=== PATIENT | female | born 1960 | race Caucasian/White ===

== ENCOUNTER → 2016-09-27 | Outpatient (CLI) | payer BC ==
[~2016-09-27] MED LIST: GADAVIST IV PRN
--- NOTE | 2016-09-27 09:41 | DIAGNOSTIC IMAGING REPORT ---
MRI OF THE BRAIN WITHOUT AND WITH IV CONTRAST CLINICAL HISTORY: Disequilibrium. Vertigo. Follow-up of prior abnormal MRI the brain. COMPARISON STUDY: 05/19/2016 TECHNIQUE: MRI of the brain was performed from the vertex to the skull base utilizing various T1 and T2 weighted sequences. Following the IV administration of 8 mL of Gadavist contrast, additional enhanced images were obtained. FINDINGS: Sagittal T1, axial diffusion, proton density and T2 weighted axial, coronal FLAIR, and pre and post axial T1-weighted images were acquired. These were supplemented with post gadolinium coronal T1 weighted images. No intra or extra-axial mass lesions are visualized. Axial diffusion-weighted images reveal no evidence of acute or subacute infarction. There is no evidence of ventricular dilatation. Proton density T2-weighted and FLAIR images reveal foci of increased T2 signal within the frontal white matter, slightly less pronounced than on the preceding study. There are no abnormal flow voids. There is no evidence of pathologic enhancement. The previously questioned area of enhancement within the right temporal lobe is no longer visualized. No cerebellopontine angle masses are visualized. The 7th and 8th nerve complexes appear normal bilaterally. Inflammatory changes are present within the left maxillary sinus. IMPRESSION: 1. No evidence of intracranial mass 2. No evidence of acute or subacute infarction 3. Foci of increased T2 signal within the frontal white matter, slightly less pronounced than on the preceding study 4. The previously questioned area of enhancement within the right temporal lobe is no longer visualized. There is no pathologic enhancement on the current study 5. Inflammatory changes within the left maxillary sinus Electronically signed by: Nate Santana M.D. 09/27/2016 9:39 AM
== END | disposition home or self-care (01) ==
LOC: C.MRI 08:35
PROVIDERS: ATTEND Psychiatry & Neurology Neurology
DX: R42 Dizziness and giddiness (principal); R90.89 Other abnormal findings on diagnostic imaging of central nervous system

== ENCOUNTER 2018-12-30 22:27 | Inpatient (IN) ==
[2018-12-30] MEDS ORDERED: ONDANSETRON INJ 2 MG/ML 2 ML VIAL IV STA (23:03)
[2018-12-30] MEDS ORDERED: SODIUM CHLORIDE 0.9% 1000ML 1,000 ML IV SCH ×2 (23:15→23:45)
[2018-12-30 23:51] LABS: Albumin Globulin Ratio 0.9 (0.9-2); Albumin Level 4.4 gm/dl (3.4-5.0); BUN Creatinine Ratio 15.1 (10-20); Bilirubin,Total 0.8 mg/dl (0.2-1); Calcium 10.1 mg/dl (8.5-10.1); Creatinine Clr Calc Pharmacy 31.6 ml/min; Est GFR (African American) 31.5; Est GFR (Non-African American) 27.2; Potassium 3.6 mmol/L (3.5-5.1); Total Protein 9.4 gm/dl (6.4-8.2)
[2018-12-30 23:57] LABS: Hematocrit (blood only) 49.8 % (37-47); Hemoglobin 17.1 g/dL (12.0-16.0); Mean Corpuscular Hgb Conc 34.3 g/dL (32-36); Red Blood Count 5.66 M/uL (4.2-5.4); White Blood Count 11.57 K/uL (4.8-10.8)
[2018-12-31] MEDS ORDERED: POTASSIUM CHLORIDE / WTR 10 MEQ/100 ML PLCT IV ONE
[2018-12-31 00:40] LABS: Base Excess VBG -16.1 mEq/L; HCO3 VBG 8 mmol/L; Oxygen Saturation VBG 81.7 %; PCO2 VBG 19 mmHg (38-50); PO2 VBG 51 mmHg; pH VBG 7.26 (7.36-7.41)
[2018-12-31] MEDS ORDERED: INSULIN HUMAN REGULAR IV BOLUS 2 UNITS in SYRINGE 0 ML IV ONE (00:45)
[2018-12-31 01:09] LABS: Immature Granulocytes # (auto) 0.08 K/uL (0.00-0.02); Immature Granulocytes % (auto) 0.7 %; Lymphocytes # (auto) 0.78 K/uL (1.2-3.4); Lymphocytes % (auto) 6.7 %; Monocytes # (auto) 0.44 K/uL (0.11-0.59); Monocytes % (auto) 3.8 %; Neutrophils # (auto) 10.27 K/uL (1.4-6.5); Neutrophils % (auto) 88.8 %
[2018-12-31 01:21] LABS: Appearance Urine Clear (Clear); Bacteria Urine Automated Negative (Negative); Bilirubin Urine Negative (Negative); Blood Urine 1+ (Negative); Cast Urine Automated 0 /lpf (0-5); Color Urine Yellow; Epithelial Cell Urine Auto 20-30 /lpf (0-5); Glucose Urine UA 3+ (Negative); Leukocyte Esterase Urine Negative (Negative); Nitrite Urine Negative (Negative); Protein Urine Negative (Negative); RBC Urine Automated 0-4 /hpf (0-4); Specific Gravity Urine 1.033 (1.000-1.030); Urobilinogen Urine Negative (Negative)
[2018-12-31 01:23] LABS: Ketones Urine 4+ (Negative)
--- NOTE | 2018-12-31 01:27 | History & Physical Report ---
Date of Service December 31, 2018 Assessment & Plan (1) DKA (diabetic ketoacidoses): UT=467, AG=31, pH=7.26 on VBG, UA+ketones. No prior diagnosis of DM. Laboratory findings consistent with DKA. Patient clinically dry on physical exam. Has received 2L NSS and started on insulin gtt -Admit to PCU -Continue insulin gtt with q hourly finger sticks, goal 150-200 -NSS x 1 liter bolus then at 125mL/hr x 2 liters -Monitor BMP, Mg, PO4 and VBG q 4 hours to assess for gap closure -Check A1C with AM labs -Consult diabetes education (2) Hypertension: Blood pressure 141/97 at present -Will hold HCTZ and Lisinopril for now as patient appears to be clinically dry with some renal compromise -Continue to monitor -Serial labs as above (3) Hypothyroid: Chronic. -Check TSH with AM labs -Continue Synthroid at home dose F/E/N - NSS as above with K in bolus bag, will change to D5 when target blood sugar is met, monitor electrolytes and replete as needed, NPO for now Ppx - Lovenox Code - Full Dispo - PCU History of Present Illness Chief Complaint: New onset DM, DKA Primary Care Provider: Funmilayo Willams Patient is a 58yo C female with history of HTN, Hypothyroidism presenting in DKA. She reports diffuse weakness as well as nausea, non-bloody/non-bilious vomiting and PO intolerance over the last 3 days. Also with polydipsia and polyuria, dry mouth. She denies CP/palpitations/SOB/abdominal pain/diarrhea/dysuria. Patient says she "feels terrible". On arrival to the ER her blood sugar was found to be 880 with an anion gap of 31, pH of 7.26 on VBG. She was administered IVF and started on an insulin drip. She says she feels a little less nausea after receiving IVF. ER Course: NSS x 2 liters, Zofran x 4mg, KCL x 10mEq, Insulin gtt Allergies Allergy/AdvReac Type Severity Reaction Status Date / Time No Known Allergies Allergy Unverified 12/31/18 00:40 Home Medications Home Medications Medication Instructions Recorded Confirmed Type cyanocobalamin (vitamin B-12) 1,000 mcg IM MONTHLY 12/31/18 12/31/18 History cyanocobalamin (vitamin B-12) 1,000 mcg PO DAILY 12/31/18 12/31/18 History hydrochlorothiazide 25 mg PO DAILY 12/31/18 12/31/18 History levothyroxine 50 mcg PO DAILY 12/31/18 12/31/18 History lisinopril 10 mg PO DAILY 12/31/18 12/31/18 History multivitamin 1 tab PO DAILY 12/31/18 12/31/18 History Past Med/Surg History Medical History Hypertension Hypothyroid Surgical History History of ankle surgery Family History Other Diabetes Hypertension Social History Preferred Language: Pashto marital status: Current Living Situation: Spouse Feels Safe at Home: Yes Smoking Status: Never smoker Hx Alcohol Use: No Hx Substance Use: No Review of Systems All systems reviewed & are unremarkable except as noted in HPI & below Physical Exam Vital Signs (Past 24 Hours): Last Vital Signs Temp 36.8 C 12/30/18 22:32 Pulse 103 H 12/31/18 01:03 Resp 21 12/31/18 01:03 BP 141/97 H 12/31/18 01:03 Pulse Ox 99 12/31/18 01:03 Physical Exam: General: patient ill in appearance, NAD, AA&O x 4, +Kussmaul's respirations Skin: warm, dry, intact, no rashes or lesions HEENT: NC/AT, PERRL, EOMI, anicteric sclera, conjunctiva without injection, external ear normal to inspection and nontender, nares patent, dry mucus membranes, dentition intact, no oropharyngeal lesions, neck supple, trachea midline, no LAD, no thyromegaly, no JVD Heart: +S1/S2, regular, tachycardic, no m/r/g Lungs: equal air entry bilaterally, no rales/rhonchi/wheezes Abd: +BS, soft, NT/ND, no masses/organomegaly/ascites Ext: warm, 2+ pulses in UE/LE bilaterally, no clubbing/cyanosis or edema Neuro: nonfocal, patient AA&O x 4, speech intact, no facial droop, moving all extremities on command with equal strength 5/5 Results & Data Laboratory Results Lab Results 12/30/18 12/30/18 12/30/18 Range/Units 23:19 23:19 23:22 WBC 11.57 H (4.8-10.8) K/uL RBC 5.66 H (4.2-5.4) M/uL Hgb 17.1 H (12.0-16.0) g/dL Hct 49.8 H (37-47) % MCV 88.0 (80-100) fL MCH 30.2 (25-34) pg MCHC 34.3 (32-36) g/dL Plt Count (130-400) K/uL Immature Gran % (Auto) 0.7 % Neut % (Auto) 88.8 % Lymph % (Auto) 6.7 % Haskell % (Auto) 3.8 % Eos % (Auto) 0.0 % Baso % (Auto) 0.0 % Immature Gran # (Auto) 0.08 H (0.00-0.02) K/uL Neut # (Auto) 10.27 H (1.4-6.5) K/uL Lymph # (Auto) 0.78 L (1.2-3.4) K/uL Haskell # (Auto) 0.44 (0.11-0.59) K/uL Eos # (Auto) 0.00 (0-0.5) K/uL Baso # (Auto) 0.00 (0-0.2) K/uL VBG pH (7.36-7.41) VBG pCO2 (38-50) mmHg VBG pO2 mmHg VBG HCO3 mmol/L VBG O2 Saturation % VBG Base Excess mEq/L Sodium 129 L (136-145) mmol/L Potassium 3.6 (3.5-5.1) mmol/L Chloride 89 L (98-107) mmol/L Carbon Dioxide 9 L* (21-32) mmol/L Anion Gap 31.0 H (3-11) BUN 30 H (7-18) mg/dl Creatinine 1.99 H (0.6-1.2) mg/dl Est Cr Clr Drug Dosing 31.6 ml/min Est GFR ( Amer) 31.5 Est GFR (Non-Af Amer) 27.2 BUN/Creatinine Ratio 15.1 (10-20) Glucose 880 H* (70-99) mg/dl POC Glucose (70-99) Calcium 10.1 (8.5-10.1) mg/dl Total Bilirubin 0.8 (0.2-1) mg/dl AST 5 L (15-37) U/L ALT 20 (12-78) U/L Alkaline Phosphatase 120 H (45-117) U/L Total Protein 9.4 H (6.4-8.2) gm/dl Albumin 4.4 (3.4-5.0) gm/dl Globulin 5.0 H (2.5-4.0) gm/dl Albumin/Globulin Ratio 0.9 (0.9-2) Lipase 221 (73-393) U/L Urine Color Urine Appearance (Clear) Urine pH (4.5-7.5) Ur Specific Kenneth (1.000-1.030) Urine Protein (Negative) Urine Glucose (UA) (Negative) Urine Ketones (Negative) Urine Blood (Negative) Urine Nitrite (Negative) Urine Bilirubin (Negative) Urine Urobilinogen (Negative) Ur Leukocyte Esterase (Negative) Urine WBC (Auto) (0-5) /hpf Urine RBC (Auto) (0-4) /hpf U Hyaline Cast (Auto) (0-5) /lpf U Epithel Cells (Auto) (0-5) /lpf Urine Bacteria (Auto) (Negative) Influenza Type A Ag Neg for Influ A (Neg) Influenza Type B Ag Neg for Influ B (Neg) 12/31/18 12/31/18 12/31/18 Range/Units 00:23 00:27 00:28 WBC (4.8-10.8) K/uL RBC (4.2-5.4) M/uL Hgb (12.0-16.0) g/dL Hct (37-47) % MCV (80-100) fL MCH (25-34) pg MCHC (32-36) g/dL Plt Count (130-400) K/uL Immature Gran % (Auto) % Neut % (Auto) % Lymph % (Auto) % Haskell % (Auto) % Eos % (Auto) % Baso % (Auto) % Immature Gran # (Auto) (0.00-0.02) K/uL Neut # (Auto) (1.4-6.5) K/uL Lymph # (Auto) (1.2-3.4) K/uL Haskell # (Auto) (0.11-0.59) K/uL Eos # (Auto) (0-0.5) K/uL Baso # (Auto) (0-0.2) K/uL VBG pH 7.26 L (7.36-7.41) VBG pCO2 19 L (38-50) mmHg VBG pO2 51 mmHg VBG HCO3 8 mmol/L VBG O2 Saturation 81.7 % VBG Base Excess -16.1 mEq/L Sodium (136-145) mmol/L Potassium (3.5-5.1) mmol/L Chloride (98-107) mmol/L Carbon Dioxide (21-32) mmol/L Anion Gap (3-11) BUN (7-18) mg/dl Creatinine (0.6-1.2) mg/dl Est Cr Clr Drug Dosing ml/min Est GFR ( Amer) Est GFR (Non-Af Amer) BUN/Creatinine Ratio (10-20) Glucose (70-99) mg/dl POC Glucose > 600 H* > 600 H* (70-99) Calcium (8.5-10.1) mg/dl Total Bilirubin (0.2-1) mg/dl AST (15-37) U/L ALT (12-78) U/L Alkaline Phosphatase (45-117) U/L Total Protein (6.4-8.2) gm/dl Albumin (3.4-5.0) gm/dl Globulin (2.5-4.0) gm/dl Albumin/Globulin Ratio (0.9-2) Lipase (73-393) U/L Urine Color Urine Appearance (Clear) Urine pH (4.5-7.5) Ur Specific Kenneth (1.000-1.030) Urine Protein (Negative) Urine Glucose (UA) (Negative) Urine Ketones (Negative) Urine Blood (Negative) Urine Nitrite (Negative) Urine Bilirubin (Negative) Urine Urobilinogen (Negative) Ur Leukocyte Esterase (Negative) Urine WBC (Auto) (0-5) /hpf Urine RBC (Auto) (0-4) /hpf U Hyaline Cast (Auto) (0-5) /lpf U Epithel Cells (Auto) (0-5) /lpf Urine Bacteria (Auto) (Negative) Influenza Type A Ag (Neg) Influenza Type B Ag (Neg) 12/31/18 Range/Units 01:04 WBC (4.8-10.8) K/uL RBC (4.2-5.4) M/uL Hgb (12.0-16.0) g/dL Hct (37-47) % MCV (80-100) fL MCH (25-34) pg MCHC (32-36) g/dL Plt Count (130-400) K/uL Immature Gran % (Auto) % Neut % (Auto) % Lymph % (Auto) % Haskell % (Auto) % Eos % (Auto) % Baso % (Auto) % Immature Gran # (Auto) (0.00-0.02) K/uL Neut # (Auto) (1.4-6.5) K/uL Lymph # (Auto) (1.2-3.4) K/uL Haskell # (Auto) (0.11-0.59) K/uL Eos # (Auto) (0-0.5) K/uL Baso # (Auto) (0-0.2) K/uL VBG pH (7.36-7.41) VBG pCO2 (38-50) mmHg VBG pO2 mmHg VBG HCO3 mmol/L VBG O2 Saturation % VBG Base Excess mEq/L Sodium (136-145) mmol/L Potassium (3.5-5.1) mmol/L Chloride (98-107) mmol/L Carbon Dioxide (21-32) mmol/L Anion Gap (3-11) BUN (7-18) mg/dl Creatinine (0.6-1.2) mg/dl Est Cr Clr Drug Dosing ml/min Est GFR ( Amer) Est GFR (Non-Af Amer) BUN/Creatinine Ratio (10-20) Glucose (70-99) mg/dl POC Glucose (70-99) Calcium (8.5-10.1) mg/dl Total Bilirubin (0.2-1) mg/dl AST (15-37) U/L ALT (12-78) U/L Alkaline Phosphatase (45-117) U/L Total Protein (6.4-8.2) gm/dl Albumin (3.4-5.0) gm/dl Globulin (2.5-4.0) gm/dl Albumin/Globulin Ratio (0.9-2) Lipase (73-393) U/L Urine Color Yellow Urine Appearance Clear (Clear) Urine pH 5.0 (4.5-7.5) Ur Specific Kenneth 1.033 H (1.000-1.030) Urine Protein Negative (Negative) Urine Glucose (UA) 3+ H (Negative) Urine Ketones 4+ H (Negative) Urine Blood 1+ H (Negative) Urine Nitrite Negative (Negative) Urine Bilirubin Negative (Negative) Urine Urobilinogen Negative (Negative) Ur Leukocyte Esterase Negative (Negative) Urine WBC (Auto) 1-5 (0-5) /hpf Urine RBC (Auto) 0-4 (0-4) /hpf U Hyaline Cast (Auto) 0 (0-5) /lpf U Epithel Cells (Auto) 20-30 H (0-5) /lpf Urine Bacteria (Auto) Negative (Negative) Influenza Type A Ag (Neg) Influenza Type B Ag (Neg) ECG Additional Comments: Sinus tachycardia at 107, no acute ischemic changes Code Status & VTE Plan Code Status FULL VTE Prophylaxis Plan VTE Prophylaxis will be ordered: Yes (1) DKA (diabetic ketoacidoses) Diabetes mellitus type: type 2 Diabetes mellitus complication detail: without coma Qualified Code(s): E11.10 - Type 2 diabetes mellitus with ketoacidosis without coma (2) Hypertension Hypertension type: essential hypertension Qualified Code(s): I10 - Essential (primary) hypertension (3) Hypothyroid Hypothyroidism type: unspecified Qualified Code(s): E03.9 - Hypothyroidism, unspecified
--- NOTE | 2018-12-31 01:42 | Emergency Department Note ---
History of Present Illness General Chief complaint: Dizziness Stated complaint: LABORED BREATHING, VOMITING, DIARRHEA, VERTIGO Source: patient Mode of arrival: ambulatory Limitations: no limitations History of Present Illness This patient is a 58-year-old female who presents to the emergency department complaining of vomiting. The patient reports that she has been very weak over the past 3-4 days. She reports that she has been vomiting for the past 2.5 days and has been unable to keep anything down. She has been urinating more frequ ently than usual. She states that she feels very weak and like she cannot stand up straight. She does report she has a history of "balance issues" for the past 3 years. She has been seeing a neurologist in [place] for this and reports they think she has something similar to MS. The patient denies any abdominal pain or diarrhea. She reports a history of hypertension and hypothyroidism but states she is otherwise healthy. She has not been trying any medication for her symptoms. She denies any history of similar episodes. Home Medications Home Medications Medication Instructions Recorded Confirmed Type cyanocobalamin (vitamin B-12) 1,000 mcg IM MONTHLY 12/31/18 12/31/18 History cyanocobalamin (vitamin B-12) 1,000 mcg PO DAILY 12/31/18 12/31/18 History hydrochlorothiazide 25 mg PO DAILY 12/31/18 12/31/18 History levothyroxine 50 mcg PO DAILY 12/31/18 12/31/18 History lisinopril 10 mg PO DAILY 12/31/18 12/31/18 History multivitamin 1 tab PO DAILY 12/31/18 12/31/18 History Allergies Allergy/AdvReac Type Severity Reaction Status Date / Time No Known Allergies Allergy Unverified 12/31/18 00:40 Past Med/Surg History Medical History Hypertension Hypothyroid Surgical History History of ankle surgery Family History Other Diabetes Hypertension Social History Preferred Language: Ukrainian Communication Ability: Effective Embroidery Operator Required: No Beliefs That Will Affect Care: None marital status: Current Living Situation: Spouse and Other Other Information That Helps Us Care for You: No Feels Safe at Home: Yes Safety Concerns: Feels Safe At This Time Smoking Status: Never smoker Hx Alcohol Use: Yes Hx Substance Use: No Review of Systems A total of 10 systems reviewed and were otherwise negative Physical Exam Vital Signs Vital Signs - 24 hr 12/30/18 22:32 12/31/18 01:03 12/31/18 02:30 Temperature 36.8 C Temperature Source Oral Sepsis Recent Fever Within 48 Hours No Sepsis New/Unexplained Change in Mental Status No Sepsis Action Taken by Nursing No Action Required Pulse Rate 106 H Pulse Rate [Apical] 103 H Pulse Rhythm Regular Pulse Rhythm [Apical] Pulse Strength Normal Pulse Strength [Apical] Respiratory Rate 22 21 Respiratory Effort / Characteristics Non-Labored Spontaneous Labored SOB on Exertion Respiratory Depth Normal Normal Normal Respiratory Pattern Regular Rapid/Deep Blood Pressure 117/78 Blood Pressure [Left Arm] 141/97 H Blood Pressure Mean 91 Blood Pressure Mean [Left Arm] 111 Blood Pressure Position Sitting Blood Pressure Position [Left Arm] Pulse Oximetry 99 99 Oxygen Delivery Method Room Air Room Air Room Air 12/31/18 02:40 12/31/18 02:45 12/31/18 03:22 Temperature 36.6 C 36.9 C Temperature Source Oral Oral Sepsis Recent Fever Within 48 Hours Sepsis New/Unexplained Change in Mental Status Sepsis Action Taken by Nursing Pulse Rate 107 H Pulse Rate [Apical] 107 H 96 H Pulse Rhythm Pulse Rhythm [Apical] Regular Pulse Strength Pulse Strength [Apical] Normal Respiratory Rate 36 H 18 Respiratory Effort / Characteristics Labored Respiratory Depth Respiratory Pattern Regular Blood Pressure Blood Pressure [Left Arm] 158/85 H 116/80 Blood Pressure Mean Blood Pressure Mean [Left Arm] 109 92 Blood Pressure Position Blood Pressure Position [Left Arm] Sitting Pulse Oximetry 99 98 Oxygen Delivery Method Room Air VITALS: Vitals are noted on the nurse's note and reviewed by myself. GENERAL: This is a 58-year-old female, in moderate distress. SKIN: The skin was without rashes. EARS: External auditory canals clear, tympanic membranes pearly de león without erythema or effusion bilaterally. EYES: Pupils equal round and reactive to light and accommodation. Extraocular movements intact. MOUTH: Mucous membranes dry. NECK: Supple without nuchal rigidity. No lymphadenopathy. HEART: Regular rate and rhythm without murmurs gallops or rubs. LUNGS: Clear to auscultation bilaterally without wheezes, rales or rhonchi. ABDOMEN: Positive bowel sounds x 4. Soft, nontender to palpation. No guarding or rebound tenderness. NEURO: Patient was alert and oriented to person place and time. No focal neurological deficits. Course Consultations Consultation #1: Dr. Garrett Brito [facility] [place] Administered Medications Insulin Human Regular 250 (units/ Sodium Chloride) 250 mls @ 4.2 mls/hr IV .Q24H ROBI; Protocol Stop: 01/30/19 00:00 Last Titration: 12/31/18 05:58 Dose: 4.2 units/hr, 4.2 mls/hr Documented by: [id number] Cosigned by: [id number] Titration: 12/31/18 04:56 Dose: 3.5 units/hr, 3.5 mls/hr Documented by: [id number] Cosigned by: [id number] Titration: 12/31/18 03:41 Dose: 2.9 units/hr, 2.9 mls/hr Documented by: [id number] Cosigned by: [id number] Titration: 12/31/18 03:14 Dose: 2.4 units/hr, 2.4 mls/hr Documented by: [id number] Cosigned by: [id number] Admin: 12/31/18 00:55 Dose: 2 units/hr, 2 mls/hr Documented by: [id number] Cosigned by: [id number] Potassium Chloride/Sodium Chloride (Normal Saline W/20 Meq Kcl) 20 meq in 1,000 mls @ 125 mls/hr IV .Q8H ROBI Stop: 01/30/19 03:29 Last Admin: 12/31/18 03:46 Dose: 125 mls/hr Documented by: [id number] Levothyroxine Sodium (Synthroid) 50 mcg PO DAILYBB ROBI Stop: 01/30/19 06:29 Last Admin: 12/31/18 05:39 Dose: 50 mcg Documented by: [id number] Miscellaneous (Pending D5 1/2nss Ivf) 1 ea N/A Q2H ROBI Stop: 01/30/19 03:59 Last Admin: 12/31/18 06:07 Dose: Not Given Documented by: [id number] Admin: 12/31/18 06:07 Dose: Not Given Documented by: [id number] Discontinued Medications Sodium Chloride (Nss 1000ml) 1,000 mls @ 999 mls/hr IV .Q1H1M ROBI Stop: 12/31/18 00:15 Last Infusion: 12/31/18 00:22 Dose: 0 mls/hr Documented by: [id number] Admin: 12/30/18 23:18 Dose: 999 mls/hr Documented by: [id number] Sodium Chloride (Nss 1000ml) 1,000 mls @ 999 mls/hr IV .Q1H1M ROBI Stop: 12/31/18 00:45 Last Infusion: 12/31/18 01:56 Dose: 0 mls/hr Documented by: [id number] Admin: 12/31/18 00:54 Dose: 999 mls/hr Documented by: [id number] Potassium Chloride (K Carmelo / Wtr) 10 meq in 100 mls @ 100 mls/hr IV ONE ONE Stop: 12/31/18 00:59 Last Infusion: 12/31/18 01:56 Dose: 0 mls/hr Documented by: [id number] Admin: 12/31/18 00:55 Dose: 100 mls/hr Documented by: [id number] Insulin Human Regular 2 units/ (Syringe) 2 mls @ 0 mls/min IV ONE ONE Stop: 12/31/18 00:46 Last Admin: 12/31/18 00:55 Dose: 1 mls/min Documented by: [id number] Cosigned by: [id number] Miscellaneous (Insulin Protocol Moderate Stress Level) 1 ea N/A ONE ONE Stop: 12/31/18 00:01 Last Admin: 12/31/18 00:54 Dose: Not Given Documented by: [id number] Ondansetron HCl (Zofran) 4 mg IV NOW STA Stop: 12/30/18 23:04 Last Admin: 12/30/18 23:18 Dose: 4 mg Documented by: [id number] Medical Decision Making Differential Diagnosis Differential diagnosis includes gastroenteritis, dehydration, colitis, bowel obstruction, DKA, UTI, pyelonephritis, cholecystitis, among others. Medical Records Attestation: I reviewed the patient's medical records. Home Medications Current Medication List: was personally reviewed by me Laboratory Data Attestation: I reviewed the patient's lab results. Result diagrams: 12/30/18 23:19 12/31/18 04:15 Lab Results 12/30/18 12/30/18 12/30/18 Range/Units 23:19 23:19 23:22 WBC 11.57 H (4.8-10.8) K/uL RBC 5.66 H (4.2-5.4) M/uL Hgb 17.1 H (12.0-16.0) g/dL Hct 49.8 H (37-47) % MCV 88.0 (80-100) fL MCH 30.2 (25-34) pg MCHC 34.3 (32-36) g/dL Plt Count (130-400) K/uL Immature Gran % (Auto) 0.7 % Neut % (Auto) 88.8 % Lymph % (Auto) 6.7 % [place] % (Auto) 3.8 % Eos % (Auto) 0.0 % Baso % (Auto) 0.0 % Immature Gran # (Auto) 0.08 H (0.00-0.02) K/uL Neut # (Auto) 10.27 H (1.4-6.5) K/uL Lymph # (Auto) 0.78 L (1.2-3.4) K/uL [place] # (Auto) 0.44 (0.11-0.59) K/uL Eos # (Auto) 0.00 (0-0.5) K/uL Baso # (Auto) 0.00 (0-0.2) K/uL PT (9.0-12.0) Seconds INR (0.9-1.1) VBG pH (7.36-7.41) VBG pCO2 (38-50) mmHg VBG pO2 mmHg VBG HCO3 mmol/L VBG O2 Saturation % VBG Base Excess mEq/L Sodium 129 L (136-145) mmol/L Potassium 3.6 (3.5-5.1) mmol/L Chloride 89 L (98-107) mmol/L Carbon Dioxide 9 L* (21-32) mmol/L Anion Gap 31.0 H (3-11) BUN 30 H (7-18) mg/dl Creatinine 1.99 H (0.6-1.2) mg/dl Est Cr Clr Drug Dosing 31.6 ml/min Est GFR ( Amer) 31.5 Est GFR (Non-Af Amer) 27.2 BUN/Creatinine Ratio 15.1 (10-20) Glucose 880 H* (70-99) mg/dl POC Glucose (70-99) Estimat Average Glucose mg/dl Hemoglobin A1c (4.5-5.6) % Calcium 10.1 (8.5-10.1) mg/dl Phosphorus (2.5-4.9) mg/dl Magnesium (1.8-2.4) mg/dl Total Bilirubin 0.8 (0.2-1) mg/dl AST 5 L (15-37) U/L ALT 20 (12-78) U/L Alkaline Phosphatase 120 H (45-117) U/L Total Protein 9.4 H (6.4-8.2) gm/dl Albumin 4.4 (3.4-5.0) gm/dl Globulin 5.0 H (2.5-4.0) gm/dl Albumin/Globulin Ratio 0.9 (0.9-2) Lipase 221 (73-393) U/L Beta-Hydroxybutyric Acd 148.00 H (0.2-2.81) mg/dl TSH (0.300-4.500) uIu/ml Urine Color Urine Appearance (Clear) Urine pH (4.5-7.5) Ur Specific [place] (1.000-1.030) Urine Protein (Negative) Urine Glucose (UA) (Negative) Urine Ketones (Negative) Urine Blood (Negative) Urine Nitrite (Negative) Urine Bilirubin (Negative) Urine Urobilinogen (Negative) Ur Leukocyte Esterase (Negative) Urine WBC (Auto) (0-5) /hpf Urine RBC (Auto) (0-4) /hpf U Hyaline Cast (Auto) (0-5) /lpf U Epithel Cells (Auto) (0-5) /lpf Urine Bacteria (Auto) (Negative) Influenza Type A Ag Neg for Influ A (Neg) Influenza Type B Ag Neg for Influ B (Neg) 12/31/18 12/31/18 12/31/18 Range/Units 00:23 00:27 00:28 WBC (4.8-10.8) K/uL RBC (4.2-5.4) M/uL Hgb (12.0-16.0) g/dL Hct (37-47) % MCV (80-100) fL MCH (25-34) pg MCHC (32-36) g/dL Plt Count (130-400) K/uL Immature Gran % (Auto) % Neut % (Auto) % Lymph % (Auto) % [place] % (Auto) % Eos % (Auto) % Baso % (Auto) % Immature Gran # (Auto) (0.00-0.02) K/uL Neut # (Auto) (1.4-6.5) K/uL Lymph # (Auto) (1.2-3.4) K/uL [place] # (Auto) (0.11-0.59) K/uL Eos # (Auto) (0-0.5) K/uL Baso # (Auto) (0-0.2) K/uL PT (9.0-12.0) Seconds INR (0.9-1.1) VBG pH 7.26 L (7.36-7.41) VBG pCO2 19 L (38-50) mmHg VBG pO2 51 mmHg VBG HCO3 8 mmol/L VBG O2 Saturation 81.7 % VBG Base Excess -16.1 mEq/L Sodium (136-145) mmol/L Potassium (3.5-5.1) mmol/L Chloride (98-107) mmol/L Carbon Dioxide (21-32) mmol/L Anion Gap (3-11) BUN (7-18) mg/dl Creatinine (0.6-1.2) mg/dl Est Cr Clr Drug Dosing ml/min Est GFR ( Amer) Est GFR (Non-Af Amer) BUN/Creatinine Ratio (10-20) Glucose (70-99) mg/dl POC Glucose > 600 H* > 600 H* (70-99) Estimat Average Glucose mg/dl Hemoglobin A1c (4.5-5.6) % Calcium (8.5-10.1) mg/dl Phosphorus (2.5-4.9) mg/dl Magnesium (1.8-2.4) mg/dl Total Bilirubin (0.2-1) mg/dl AST (15-37) U/L ALT (12-78) U/L Alkaline Phosphatase (45-117) U/L Total Protein (6.4-8.2) gm/dl Albumin (3.4-5.0) gm/dl Globulin (2.5-4.0) gm/dl Albumin/Globulin Ratio (0.9-2) Lipase (73-393) U/L Beta-Hydroxybutyric Acd (0.2-2.81) mg/dl TSH (0.300-4.500) uIu/ml Urine Color Urine Appearance (Clear) Urine pH (4.5-7.5) Ur Specific [place] (1.000-1.030) Urine Protein (Negative) Urine Glucose (UA) (Negative) Urine Ketones (Negative) Urine Blood (Negative) Urine Nitrite (Negative) Urine Bilirubin (Negative) Urine Urobilinogen (Negative) Ur Leukocyte Esterase (Negative) Urine WBC (Auto) (0-5) /hpf Urine RBC (Auto) (0-4) /hpf U Hyaline Cast (Auto) (0-5) /lpf U Epithel Cells (Auto) (0-5) /lpf Urine Bacteria (Auto) (Negative) Influenza Type A Ag (Neg) Influenza Type B Ag (Neg) 12/31/18 12/31/18 12/31/18 Range/Units 01:04 02:07 02:59 WBC (4.8-10.8) K/uL RBC (4.2-5.4) M/uL Hgb (12.0-16.0) g/dL Hct (37-47) % MCV (80-100) fL MCH (25-34) pg MCHC (32-36) g/dL Plt Count (130-400) K/uL Immature Gran % (Auto) % Neut % (Auto) % Lymph % (Auto) % [place] % (Auto) % Eos % (Auto) % Baso % (Auto) % Immature Gran # (Auto) (0.00-0.02) K/uL Neut # (Auto) (1.4-6.5) K/uL Lymph # (Auto) (1.2-3.4) K/uL [place] # (Auto) (0.11-0.59) K/uL Eos # (Auto) (0-0.5) K/uL Baso # (Auto) (0-0.2) K/uL PT (9.0-12.0) Seconds INR (0.9-1.1) VBG pH (7.36-7.41) VBG pCO2 (38-50) mmHg VBG pO2 mmHg VBG HCO3 mmol/L VBG O2 Saturation % VBG Base Excess mEq/L Sodium (136-145) mmol/L Potassium (3.5-5.1) mmol/L Chloride (98-107) mmol/L Carbon Dioxide (21-32) mmol/L Anion Gap (3-11) BUN (7-18) mg/dl Creatinine (0.6-1.2) mg/dl Est Cr Clr Drug Dosing ml/min Est GFR ( Amer) Est GFR (Non-Af Amer) BUN/Creatinine Ratio (10-20) Glucose 716 H* (70-99) mg/dl POC Glucose > 600 H* (70-99) Estimat Average Glucose mg/dl Hemoglobin A1c (4.5-5.6) % Calcium (8.5-10.1) mg/dl Phosphorus (2.5-4.9) mg/dl Magnesium (1.8-2.4) mg/dl Total Bilirubin (0.2-1) mg/dl AST (15-37) U/L ALT (12-78) U/L Alkaline Phosphatase (45-117) U/L Total Protein (6.4-8.2) gm/dl Albumin (3.4-5.0) gm/dl Globulin (2.5-4.0) gm/dl Albumin/Globulin Ratio (0.9-2) Lipase (73-393) U/L Beta-Hydroxybutyric Acd 147.28 H (0.2-2.81) mg/dl TSH (0.300-4.500) uIu/ml Urine Color Yellow Urine Appearance Clear (Clear) Urine pH 5.0 (4.5-7.5) Ur Specific [place] 1.033 H (1.000-1.030) Urine Protein Negative (Negative) Urine Glucose (UA) 3+ H (Negative) Urine Ketones 4+ H (Negative) Urine Blood 1+ H (Negative) Urine Nitrite Negative (Negative) Urine Bilirubin Negative (Negative) Urine Urobilinogen Negative (Negative) Ur Leukocyte Esterase Negative (Negative) Urine WBC (Auto) 1-5 (0-5) /hpf Urine RBC (Auto) 0-4 (0-4) /hpf U Hyaline Cast (Auto) 0 (0-5) /lpf U Epithel Cells (Auto) 20-30 H (0-5) /lpf Urine Bacteria (Auto) Negative (Negative) Influenza Type A Ag (Neg) Influenza Type B Ag (Neg) 04/09/19 04/09/19 04/09/19 Range/Units 03:07 03:07 03:07 WBC (4.8-10.8) K/uL RBC (4.2-5.4) M/uL Hgb (12.0-16.0) g/dL Hct (37-47) % MCV (80-100) fL MCH (25-34) pg MCHC (32-36) g/dL Plt Count (130-400) K/uL Immature Gran % (Auto) % Neut % (Auto) % Lymph % (Auto) % [place] % (Auto) % Eos % (Auto) % Baso % (Auto) % Immature Gran # (Auto) (0.00-0.02) K/uL Neut # (Auto) (1.4-6.5) K/uL Lymph # (Auto) (1.2-3.4) K/uL [place] # (Auto) (0.11-0.59) K/uL Eos # (Auto) (0-0.5) K/uL Baso # (Auto) (0-0.2) K/uL PT (9.0-12.0) Seconds INR (0.9-1.1) VBG pH 7.27 L (7.36-7.41) VBG pCO2 (38-50) mmHg VBG pO2 mmHg VBG HCO3 mmol/L VBG O2 Saturation % VBG Base Excess mEq/L Sodium 134 L (136-145) mmol/L Potassium 3.1 L (3.5-5.1) mmol/L Chloride 96 L (98-107) mmol/L Carbon Dioxide 10 L (21-32) mmol/L Anion Gap 28.0 H (3-11) BUN 31 H (7-18) mg/dl Creatinine 1.85 H (0.6-1.2) mg/dl Est Cr Clr Drug Dosing 33.3 ml/min Est GFR ( Amer) 34.4 Est GFR (Non-Af Amer) 29.7 BUN/Creatinine Ratio 16.5 (10-20) Glucose 660 H* (70-99) mg/dl POC Glucose (70-99) Estimat Average Glucose 372 mg/dl Hemoglobin A1c 14.6 H (4.5-5.6) % Calcium 9.5 (8.5-10.1) mg/dl Phosphorus 2.9 (2.5-4.9) mg/dl Magnesium 2.8 H (1.8-2.4) mg/dl Total Bilirubin (0.2-1) mg/dl AST (15-37) U/L ALT (12-78) U/L Alkaline Phosphatase (45-117) U/L Total Protein (6.4-8.2) gm/dl Albumin (3.4-5.0) gm/dl Globulin (2.5-4.0) gm/dl Albumin/Globulin Ratio (0.9-2) Lipase (73-393) U/L Beta-Hydroxybutyric Acd 136.74 H (0.2-2.81) mg/dl TSH (0.300-4.500) uIu/ml Urine Color Urine Appearance (Clear) Urine pH (4.5-7.5) Ur Specific [place] (1.000-1.030) Urine Protein (Negative) Urine Glucose (UA) (Negative) Urine Ketones (Negative) Urine Blood (Negative) Urine Nitrite (Negative) Urine Bilirubin (Negative) Urine Urobilinogen (Negative) Ur Leukocyte Esterase (Negative) Urine WBC (Auto) (0-5) /hpf Urine RBC (Auto) (0-4) /hpf U Hyaline Cast (Auto) (0-5) /lpf U Epithel Cells (Auto) (0-5) /lpf Urine Bacteria (Auto) (Negative) Influenza Type A Ag (Neg) Influenza Type B Ag (Neg) 12/31/18 12/31/18 12/31/18 Range/Units 04:10 04:15 04:15 WBC (4.8-10.8) K/uL RBC (4.2-5.4) M/uL Hgb (12.0-16.0) g/dL Hct (37-47) % MCV (80-100) fL MCH (25-34) pg MCHC (32-36) g/dL Plt Count (130-400) K/uL Immature Gran % (Auto) % Neut % (Auto) % Lymph % (Auto) % [place] % (Auto) % Eos % (Auto) % Baso % (Auto) % Immature Gran # (Auto) (0.00-0.02) K/uL Neut # (Auto) (1.4-6.5) K/uL Lymph # (Auto) (1.2-3.4) K/uL [place] # (Auto) (0.11-0.59) K/uL Eos # (Auto) (0-0.5) K/uL Baso # (Auto) (0-0.2) K/uL PT 10.0 (9.0-12.0) Seconds INR 1.0 (0.9-1.1) VBG pH (7.36-7.41) VBG pCO2 (38-50) mmHg VBG pO2 mmHg VBG HCO3 mmol/L VBG O2 Saturation % VBG Base Excess mEq/L Sodium 134 L (136-145) mmol/L Potassium 3.0 L (3.5-5.1) mmol/L Chloride 99 (98-107) mmol/L Carbon Dioxide 12 L (21-32) mmol/L Anion Gap 23.0 H (3-11) BUN 30 H (7-18) mg/dl Creatinine 1.80 H (0.6-1.2) mg/dl Est Cr Clr Drug Dosing 34.2 ml/min Est GFR ( Amer) 35.6 Est GFR (Non-Af Amer) 30.7 BUN/Creatinine Ratio 16.9 (10-20) Glucose 604 H* (70-99) mg/dl POC Glucose > 600 H* (70-99) Estimat Average Glucose mg/dl Hemoglobin A1c (4.5-5.6) % Calcium 9.3 (8.5-10.1) mg/dl Phosphorus 2.0 L (2.5-4.9) mg/dl Magnesium 2.8 H (1.8-2.4) mg/dl Total Bilirubin (0.2-1) mg/dl AST (15-37) U/L ALT (12-78) U/L Alkaline Phosphatase (45-117) U/L Total Protein (6.4-8.2) gm/dl Albumin (3.4-5.0) gm/dl Globulin (2.5-4.0) gm/dl Albumin/Globulin Ratio (0.9-2) Lipase (73-393) U/L Beta-Hydroxybutyric Acd 115.82 H (0.2-2.81) mg/dl TSH 0.525 (0.300-4.500) uIu/ml Urine Color Urine Appearance (Clear) Urine pH (4.5-7.5) Ur Specific [place] (1.000-1.030) Urine Protein (Negative) Urine Glucose (UA) (Negative) Urine Ketones (Negative) Urine Blood (Negative) Urine Nitrite (Negative) Urine Bilirubin (Negative) Urine Urobilinogen (Negative) Ur Leukocyte Esterase (Negative) Urine WBC (Auto) (0-5) /hpf Urine RBC (Auto) (0-4) /hpf U Hyaline Cast (Auto) (0-5) /lpf U Epithel Cells (Auto) (0-5) /lpf Urine Bacteria (Auto) (Negative) Influenza Type A Ag (Neg) Influenza Type B Ag (Neg) 12/31/18 Range/Units 05:54 WBC (4.8-10.8) K/uL RBC (4.2-5.4) M/uL Hgb (12.0-16.0) g/dL Hct (37-47) % MCV (80-100) fL MCH (25-34) pg MCHC (32-36) g/dL Plt Count (130-400) K/uL Immature Gran % (Auto) % Neut % (Auto) % Lymph % (Auto) % [place] % (Auto) % Eos % (Auto) % Baso % (Auto) % Immature Gran # (Auto) (0.00-0.02) K/uL Neut # (Auto) (1.4-6.5) K/uL Lymph # (Auto) (1.2-3.4) K/uL [place] # (Auto) (0.11-0.59) K/uL Eos # (Auto) (0-0.5) K/uL Baso # (Auto) (0-0.2) K/uL PT (9.0-12.0) Seconds INR (0.9-1.1) VBG pH (7.36-7.41) VBG pCO2 (38-50) mmHg VBG pO2 mmHg VBG HCO3 mmol/L VBG O2 Saturation % VBG Base Excess mEq/L Sodium (136-145) mmol/L Potassium (3.5-5.1) mmol/L Chloride (98-107) mmol/L Carbon Dioxide (21-32) mmol/L Anion Gap (3-11) BUN (7-18) mg/dl Creatinine (0.6-1.2) mg/dl Est Cr Clr Drug Dosing ml/min Est GFR ( Amer) Est GFR (Non-Af Amer) BUN/Creatinine Ratio (10-20) Glucose (70-99) mg/dl POC Glucose 534 H* (70-99) Estimat Average Glucose mg/dl Hemoglobin A1c (4.5-5.6) % Calcium (8.5-10.1) mg/dl Phosphorus (2.5-4.9) mg/dl Magnesium (1.8-2.4) mg/dl Total Bilirubin (0.2-1) mg/dl AST (15-37) U/L ALT (12-78) U/L Alkaline Phosphatase (45-117) U/L Total Protein (6.4-8.2) gm/dl Albumin (3.4-5.0) gm/dl Globulin (2.5-4.0) gm/dl Albumin/Globulin Ratio (0.9-2) Lipase (73-393) U/L Beta-Hydroxybutyric Acd (0.2-2.81) mg/dl TSH (0.300-4.500) uIu/ml Urine Color Urine Appearance (Clear) Urine pH (4.5-7.5) Ur Specific [place] (1.000-1.030) Urine Protein (Negative) Urine Glucose (UA) (Negative) Urine Ketones (Negative) Urine Blood (Negative) Urine Nitrite (Negative) Urine Bilirubin (Negative) Urine Urobilinogen (Negative) Ur Leukocyte Esterase (Negative) Urine WBC (Auto) (0-5) /hpf Urine RBC (Auto) (0-4) /hpf U Hyaline Cast (Auto) (0-5) /lpf U Epithel Cells (Auto) (0-5) /lpf Urine Bacteria (Auto) (Negative) Influenza Type A Ag (Neg) Influenza Type B Ag (Neg) Imaging Data Attestation: I personally reviewed and interpreted this imaging study as follows: My Impression: ABDOMINAL SERIES: No acute cardiopulmonary findings. Blood Pressure Blood Pressure Findings: Normal blood pressure Blood Pressure Disposition: did not require urgent referral MDM Narrative The patient is a 58-year-old female who presents today complaining of vomiting. Labs revealed a significantly elevated glucose of 880. Patient was found to have an anion gap acidosis, with CO2 of 9, anion gap of 31 and chloride of 89. Potassium was found to be 3.6. Creatinine elevated at 1.8. Patient hydrated with 2 L of fluids with K rider. Patient was started on an insulin drip. Her symptoms did improve after receiving fluids and Zofran. Patient was informed of all findings. She remained stable while being cared for in the ER. [facility]. Impression & Plan DKA (diabetic ketoacidoses) Critical Care Time I have personally spent greater than 45 minutes of critical care time in the direct management of this patient. This includes bedside care, interpretation of diagnostic studies, and testing, discussion with consultants, patient, and family members, and other required patient management activities. This 45 minutes is in excess of all separately billable procedures. Critical Care Time: Yes Total Critical Care Time: 45 Discharge Plan Visit Data *Final* Discharge Date/Time: 12/31/18 02:00 Chief Complaint: Dizziness Stated Complaint: LABORED BREATHING, VOMITING, DIARRHEA, VERTIGO ED Provider: [facility] ED Midlevel Provider: Princess Reynolds Discharge Problem: DKA (diabetic ketoacidoses) Patient Disposition: Admitted As Inpatient Discharge Instructions Interventions: ED Discharge Assessment Last Done: 12/31/18 02:00
[2018-12-31] MEDS ORDERED: DC ALL PREVIOUSLY ORDERED DIABETES MEDS ONE (02:53)
[2018-12-31] MEDS ORDERED: ONDANSETRON INJ 2 MG/ML 2 ML VIAL IV PRN (02:53)
[2018-12-31] MEDS ORDERED: SODIUM CHLORIDE 0.9% 1000ML 1,000 ML IV SCH (02:53)
[2018-12-31] MEDS ORDERED: MODERATE STRESS LEVEL ONE ×2 (02:53)
[2018-12-31] MEDS ORDERED: ACETAMINOPHEN 325 MG TAB PO PRN (02:53)
[2018-12-31] MEDS ORDERED: DKA GOAL RANGE 150-250 mg/dl ONE (02:53)
[2018-12-31] MEDS ORDERED: INSULIN REGULAR 250 UNITS in SODIUM CHLORIDE 0.9% 247.5 ML IV SCH ×2 (02:53)
[2018-12-31 02:59] LABS: Beta-Hydroxybutyrate 147.28 mg/dl (0.2-2.81)
[2018-12-31] MEDS ORDERED: DEXTROSE 50% 50 ML SYRINGE IV PRN (03:15)
[2018-12-31] MEDS ORDERED: GLUCAGON FOR INJ 1 MG VIAL IM PRN (03:15)
[2018-12-31] MEDS ORDERED: GLUCOSE 10 TABS/TUBE PO PRN (03:15)
[2018-12-31] MEDS ORDERED: GLUCOSE 40% GEL 15 GM TUBE PO PRN (03:15)
[2018-12-31] MEDS ORDERED: CARBOHYDRATES FOR HYPOGLYCEMIA PO PRN (03:15)
[2018-12-31 03:39] LABS: BUN Creatinine Ratio 16.5 (10-20); Calcium 9.5 mg/dl (8.5-10.1); Creatinine Clr Calc Pharmacy 33.3 ml/min; Est GFR (African American) 34.4; Est GFR (Non-African American) 29.7; Magnesium 2.8 mg/dl (1.8-2.4); Phosphorus 2.9 mg/dl (2.5-4.9); Potassium 3.1 mmol/L (3.5-5.1)
[2018-12-31] MEDS: NSS + 20MEQ KCL 20 MEQ/1,000 ML BAG IV SCH ×3 (03:46→20:21)
[2018-12-31 04:18] LABS: Beta-Hydroxybutyrate 136.74 mg/dl (0.2-2.81)
[2018-12-31 04:54] LABS: BUN Creatinine Ratio 16.9 (10-20); Calcium 9.3 mg/dl (8.5-10.1); Creatinine Clr Calc Pharmacy 34.2 ml/min; Est GFR (African American) 35.6; Est GFR (Non-African American) 30.7; Magnesium 2.8 mg/dl (1.8-2.4)
[2018-12-31 05:08] LABS: Beta-Hydroxybutyrate 115.82 mg/dl (0.2-2.81)
[2018-12-31] MEDS: LEVOTHYROXINE SODIUM 50 MCG TABLET PO SCH (05:39)
[2018-12-31 05:57] LABS: Estimated Average Glucose 372 mg/dl; Hemoglobin A1C 14.6 % (4.5-5.6)
[2018-12-31] MEDS: PENDING D5 1/2NSS IVF SCH ×4 (06:07→14:02)
--- NOTE | 2018-12-31 06:33 | XRay Report ---
XR abdomen 2V w PA chest CLINICAL HISTORY: vomiting nausea COMPARISON STUDY: No previous studies for comparison. FINDINGS: The soft tissues, psoas shadows, renal outlines and intestinal gas pattern appear normal. T here is no evidence for bowel obstruction. There is no evidence for free intraperitoneal air. No abno rmal abdominal calcifications are seen. A frontal view of the chest was performed and is unremarkable . Moderate increase in fecal load throughout the colon consistent with fecal stasis IMPRESSION: Findings consistent with moderate fecal stasis. Otherwise negative study The above report was generated using voice recognition software. It may contain grammatical, syntax or spelling errors. Electronically signed by: Tye Hearn M.D. 12/31/2018 6:32 AM
[2018-12-31] MEDS ORDERED: POTASSIUM CHLORIDE 20 MEQ TABCR PO ONE (07:15)
[2018-12-31] MEDS: POTASSIUM CHLORIDE / WTR 10 MEQ/100 ML PLCT IV SCH ×2 (08:00→09:30)
[2018-12-31] MEDS: ENOXAPARIN INJ 40 MG/0.4 ML SYR SQ SCH (08:00)
[2018-12-31] MEDS: INSULIN ASPART 100 UNITS/ML 3 ML PEN SC SCH ×6 (08:01→21:39)
[2018-12-31] MEDS ORDERED: INSULIN ASPART 100 UNITS/ML 3 ML PEN SC SCH ×2 (09:00→16:30)
[2018-12-31] MEDS ORDERED: POTASSIUM CHLORIDE 20 MEQ TABCR PO SCH ×2 (09:00→21:00)
[2018-12-31] MEDS ORDERED: PHARMACY GLYCEMIC MGMT CONSULT PRN (10:06)
--- NOTE | 2018-12-31 11:04 | Pharmacy Report ---
Glycemic Control Consultation - Date of Service December 31, 2018 - Scope Scope: Glycemic Pharmacist consulted by Dr Lima on 12/31 for glycemic control and to write orders per [facility] inpatient glycemic control protocol - Objective Weight: 82 kg Accuchecks BSG (last 24hrs): 12/30/18 12/31/18 12/31/18 23:19 00:27 00:28 Glucose 880 H* POC Glucose > 600 H* > 600 H* 12/31/18 12/31/18 12/31/18 02:07 02:59 03:07 Glucose 716 H* 660 H* POC Glucose > 600 H* 12/31/18 12/31/18 12/31/18 04:10 04:15 05:54 Glucose 604 H* POC Glucose > 600 H* 534 H* 12/31/18 12/31/18 12/31/18 07:14 08:09 09:03 Glucose POC Glucose 384 H* 344 H 357 H* 12/31/18 10:06 Glucose POC Glucose 307 H Laboratory Data (last 24hrs): 12/30/18 12/31/18 12/31/18 23:19 02:07 03:07 Potassium 3.6 3.1 L Carbon Dioxide 9 L* 10 L Anion Gap 31.0 H 28.0 H Creatinine 1.99 H 1.85 H Est Cr Clr Drug Dosing 31.6 33.3 Beta-Hydroxybutyric Acd 148.00 H 147.28 H 136.74 H 12/31/18 04:15 Potassium 3.0 L Carbon Dioxide 12 L Anion Gap 23.0 H Creatinine 1.80 H Est Cr Clr Drug Dosing 34.2 Beta-Hydroxybutyric Acd 115.82 H HbA1c: Hemoglobin A1c 14.6 % (4.5-5.6) H 12/31/18 03:07 - Recent Pertinent Medications Outpatient Anti-diabetic Regimen: * n/a - new diagnosis * A1c = 14.6 % 12/31/18 The patient is currently receiving: * An insulin drip titrated to goal BSG 150-250 mg/dL (current rate at 5 units/hr) Risk Factors for Insulin Resistance/Sensitivity: * Diet: NPO * Baseline resistance w/ DKA - Assessment & Plan Assessment & Plan: ASSESSMENT: * Ms. Garcia is a 58 y/o female admitted overnight for weakness, N/V. On admission, she was found to have an elevated BSG (>600) with an elevated AG, low bicarb and low pH, consistent with DKA. She does not have a history of diabetes. Pertinent PMH includes hypothyroidism. I am unable to find a previous A1c for her. * She was initiated on an insulin drip per the DKA protocol. This is currently being titrated and dextrose will be incorporated into the fluids once BSG reaches goal range, to allow for ketonemia to resolve. Of note, K has been low. Current IVFs contain K but may need to increase this if K does not improve. * Pharmacy has been consulted for glycemic control, with eventual help to transition to SQ when appropriate. Initial consult notes that the patient may have type 1 diabetes. Although this is rare for a patient of this age, it would not be out of the question. Could be a DAVE? Regardless, will need to treat the patient the same (with insulin) due to significantly elevated A1c. PLAN FOR INPATIENT GLYCEMIC CONTROL: * Continue insulin drip per DKA protocol * Consider increasing K in IVFs if K remains low. Of note, pending order for fluids to incorporate dextrose does not include K so this will probably need changed. * Transition to SQ insulin once criteria met (AG closed, bicarb WNL, BSG ~200 mg/dL) * Weight-based insulin estimates are provided below should the patient meet criteria later today/overnight: * - Lantus 25 units x 1 (overlap w/ insulin drip x 6 hours) * - Novolog q4h with goal range 120-160 mg/dL, CF 25, CR 10 * Please note that the plan above was derived based on current level of insulin resistance and hospital stress. These recommendations are appropriate for inpatient admission only. Plan of care upon discharge will need to be reassessed to avoid potential outpatient hypo/hyperglycemia. Thank you.
[2018-12-31 12:17] LABS: Est GFR (African American) 41.7; Est GFR (Non-African American) 35.9; Magnesium 2.6 mg/dl (1.8-2.4)
[2018-12-31 12:25] LABS: Phosphorus 1.2 mg/dl (2.5-4.9)
[2018-12-31] MEDS ORDERED: POTASSIUM PHOS 3 MMOL/1 ML INFUSION IV STA (13:01)
[2018-12-31] MEDS ORDERED: POTASSIUM PHOSPHATE 24 MMOL in SODIUM CHLORIDE 0.9% 500 ML IV ONE (13:15)
[2018-12-31] MEDS ORDERED: POTASSIUM CHLORIDE 20 MEQ in D5W AND 1/2NSS 1,000 ML IV SCH (13:30)
[2018-12-31] MEDS ORDERED: NSS + 20MEQ KCL 20 MEQ/1,000 ML BAG IV SCH (14:45)
[2018-12-31] MEDS ORDERED: INSULIN GLARGINE SOLOSTAR 100 UNITS/ML 3 ML PEN SC ONE (14:57)
[2018-12-31 15:15] LABS: BUN Creatinine Ratio 22.4 (10-20); Calcium 8.8 mg/dl (8.5-10.1); Creatinine Clr Calc Pharmacy 45.3 ml/min; Est GFR (African American) 49.9; Est GFR (Non-African American) 43.1; Magnesium 2.4 mg/dl (1.8-2.4); Potassium 3.8 mmol/L (3.5-5.1)
[2018-12-31 15:27] LABS: Phosphorus 1.4 mg/dl (2.5-4.9)
[2018-12-31 19:07] LABS: BUN Creatinine Ratio 21.3 (10-20); Calcium 8.4 mg/dl (8.5-10.1); Creatinine Clr Calc Pharmacy 47.4 ml/min; Est GFR (African American) 52.7; Est GFR (Non-African American) 45.5; Magnesium 2.3 mg/dl (1.8-2.4)
[2018-12-31 19:17] LABS: Phosphorus 1.7 mg/dl (2.5-4.9); Potassium 4.6 mmol/L (3.5-5.1)
[2018-12-31] MEDS ORDERED: DC IV INSULIN INFUSION 1 EA DEVI ONE (21:00)
[2018-12-31] MEDS ORDERED: INSULIN GLARGINE SOLOSTAR 100 UNITS/ML 3 ML PEN SC SCH (21:00)
--- NOTE | 2018-12-31 21:21 | Hospitalist Progress Note ---
Date of Service December 31, 2018 Assessment & Plan (1) DKA (diabetic ketoacidoses): Resolving nicely. Anion gap closed. Electrolytes largely acceptable. Remains on insulin drip; weaning such today as we transition to SC basal-bolus regimen. Patient with strong family history of autoimmune thyroid disease - patient likely has adult-onset T1DM. Appreciate diabetes education, nutrition, and pharmacy for glycemic management. Later tonight stop q4h labs. Present on Admission?: Yes (2) T1DM (type 1 diabetes mellitus): new-onset. see "DKA" above. refer to [facility] DM clinic post-discharge. appreciate pharmacy, DM educator, and practice administrator consults. Could consider auto-antibodies (VLADIMIR-65, anti-islet cell Ab, etc) to be complete. Will need ophtho f/u after discharge. Present on Admission?: Yes (3) Hypophosphatemia: Replace IV k-phos. repeat level AM. (4) Acute kidney injury: 2nd to DKA - resolving. Continue IVF but can cut rate back; repeat BMP am. (5) Hypertension: Holding HCTZ and MANUEL due to MARIA FERNANDA. (6) Hypothyroid: TSH compensated. Cont synthroid as is. (7) DVT prophylaxis: lovenox daily. progressing. Subjective patient reports she had 15 pounds of weight loss over last 2 months, some of which was intentional. also w/ polyuria, polydipsia, nocturia for 1-2 months. strong family history of autoimmune thyroid disease. overall feels better today. no further nausea/emesis. no abdominal pain. able to eat lunch w/o difficulty. had appetite. tele normal overnight. Constitutional: no fever and no chills Respiratory: + dyspnea; no cough Cardiovascular: no chest pain Gastrointestinal: no abdominal pain Genitourinary (Female): no dysuria Physical Exam Vital Signs (Past 24 Hours): Last Vital Signs Temp 36.9 C 12/31/18 19:17 Pulse 81 12/31/18 19:17 Resp 18 12/31/18 19:17 BP 142/85 H 12/31/18 19:17 Pulse Ox 98 12/31/18 19:17 Constitutional: well developed, well nourished and + ill appearing; no acute distress ENMT: external ear and nose normal, oropharynx normal Respiratory: normal respiratory effort, lungs clear to auscultation Cardiovascular: RRR, no murmur, no edema Heart Sounds: normal S1 and normal S2 Vessels: posterior tibial pulses present and dorsalis pedis pulses present; no JVD Extremities: normal capillary refill Gastrointestinal (Abdomen): normal bowel sounds, soft, nontender, no hepatosplenomegaly Skin: no rashes, warm and dry Psychiatric: A+Ox3, euthymic affect looks tired Results & Data Laboratory Results most recent pH 7.36 most recent BMP with closed anion gap K now normal phos low hemoglobin a1c 14.6% TSH wnl (1) DKA (diabetic ketoacidoses) Diabetes mellitus type: type 1 Diabetes mellitus complication detail: without coma Qualified Code(s): E10.10 - Type 1 diabetes mellitus with ketoacidosis without coma (2) Hypertension Hypertension type: essential hypertension Qualified Code(s): I10 - Essential (primary) hypertension (3) Hypothyroid Hypothyroidism type: unspecified Qualified Code(s): E03.9 - Hypothyroidism, unspecified (4) T1DM (type 1 diabetes mellitus) Diabetes mellitus complication status: with hyperglycemia Qualified Code(s): E10.65 - Type 1 diabetes mellitus with hyperglycemia
[2018-12-31 23:52] LABS: Calcium 7.9 mg/dl (8.5-10.1); Creatinine Clr Calc Pharmacy 61.6 ml/min; Est GFR (African American) 72.4; Est GFR (Non-African American) 62.5
[2019-01-01] MEDS: INSULIN ASPART 100 UNITS/ML 3 ML PEN SC SCH ×7 (00:05→23:24)
[2019-01-01] MEDS: NSS + 20MEQ KCL 20 MEQ/1,000 ML BAG IV SCH (04:08)
[2019-01-01] MEDS: LEVOTHYROXINE SODIUM 50 MCG TABLET PO SCH (05:58)
[2019-01-01 06:35] LABS: Basophils # (auto) 0.03 K/uL (0-0.2); Basophils % (auto) 0.3 %; Eosinophils # (auto) 0.03 K/uL (0-0.5); Eosinophils % (auto) 0.3 %; Hematocrit (blood only) 35.7 % (37-47); Immature Granulocytes # (auto) 0.05 K/uL (0.00-0.02); Immature Granulocytes % (auto) 0.6 %; Lymphocytes # (auto) 1.77 K/uL (1.2-3.4); Lymphocytes % (auto) 19.6 %; Mean Corpuscular Hgb Conc 33.9 g/dL (32-36); Mean Corpuscular Volume 87.9 fL (80-100); Mean Platelet Volume 12.2 fL (7.4-10.4); Monocytes # (auto) 0.63 K/uL (0.11-0.59); Neutrophils # (auto) 6.51 K/uL (1.4-6.5); Neutrophils % (auto) 72.2 %; Platelet Count 91 K/uL (130-400); Platelet Estimate Decreased (Normal); RDW Coefficient of Variation 13.8 % (11.5-14.5); RDW Standard Deviation 44.2 fL (36.4-46.3); Red Blood Count 4.06 M/uL (4.2-5.4); White Blood Count 9.02 K/uL (4.8-10.8)
[2019-01-01 06:49] LABS: Hemoglobin 12.1 g/dL (12.0-16.0)
[2019-01-01] MEDS: ENOXAPARIN INJ 40 MG/0.4 ML SYR SQ SCH (08:00)
[2019-01-01] MEDS ORDERED: INSULIN GLARGINE SOLOSTAR 100 UNITS/ML 3 ML PEN SC SCH (09:00)
[2019-01-01] MEDS ORDERED: INSULIN GLARGINE SOLOSTAR 100 UNITS/ML 3 ML PEN SC ONE (12:45)
--- NOTE | 2019-01-01 14:21 | Pharmacy Report ---
Pharmacy Glycemic Short Note 2 - Date of Service January 01, 2019 - Glycemic Short BSG Results (Last 24 hours): 12/31/18 12/31/18 12/31/18 11:05 12:09 13:12 Glucose POC Glucose 268 H 245 H 159 H 12/31/18 12/31/18 12/31/18 14:06 14:36 14:58 Glucose 296 H POC Glucose 246 H 280 H 12/31/18 12/31/18 12/31/18 16:00 17:00 18:35 Glucose 261 H POC Glucose 262 H 195 H 12/31/18 12/31/18 12/31/18 18:40 18:42 19:53 Glucose POC Glucose 244 H 247 H 193 H 12/31/18 12/31/18 01/01/19 20:59 23:05 00:04 Glucose 122 H POC Glucose 193 H 125 H 01/01/19 01/01/19 01/01/19 03:57 07:38 11:57 Glucose POC Glucose 167 H 204 H 315 H OUTPATIENT ANTIDIABETIC REGIMEN: * None ASSESSMENT: * Patient received 30 units of basal insulin + 6 units of bolus after the insulin drip was discontinued last night. * Patient was started on a diet yesterday evening. * Fasting BSG was 167 at 0400 and 204 at 07:38 this AM, indicating that patient could use more basal insulin than just 30 units of Lantus he received yesterday. * Lunch BSG today was 315. Correctional and prandial insulin will also need tightened tonight. PLAN FOR INPATIENT GLYCEMIC CONTROL: * Basal insulin * Lantus 20 units was given this AM. * Additionally another 20 units of Lantus ordered for this afternoon for total of 40 units based on weight and stress of 3 in the insulin dosing calculator. Will aim to keep this once daily Lantus for when patient gets discharged. * Bolus insulin: tightened * NovoLog per scale ACHS or Q6hrs while NPO * Goal Range: Low 120 mg/dL - High 160 mg/dL * Correction Factor: 20 mg/dL/unit * Nutritional / Prandial insulin per carb ratio of 1 unit per 7 grams CHO consumed PLAN FOR DISCHARGE: * Based on ADA guidelines, patient with HbA1c = 14.6%, she will need to be started on Metformin and 2 additional agents such as a basal insulin and SGLT2 inhibitor.
--- NOTE | 2019-01-01 21:23 | Hospitalist Progress Note ---
Date of Service January 01, 2019 Assessment & Plan (1) DKA (diabetic ketoacidoses): Resolved. Off insulin drip. AM labs today acceptable. Can stop IV fluids. (2) T1DM (type 1 diabetes mellitus): new-onset. appreciate pharmacy, DM educator, and site specialist consults. Could consider auto-antibodies (VLADIMIR-65, anti-islet cell Ab, etc) to be complete. Will need ophtho f/u after discharge. Pharmacy adjusting basal-bolus regimen and glycemic control is improving nicely. Needs referral to DM/endo post-discharge. I'm happy with her progress. Present on Admission?: Yes (3) Hypophosphatemia: repeat level AM. (4) Acute kidney injury: 2nd to DKA - resolved. stop fluids. BMP am. (5) Hypertension: Holding HCTZ and MANUEL due to MARIA FERNANDA. BPs acceptable at this time. (6) Hypothyroid: TSH compensated. Cont synthroid as is. (7) DVT prophylaxis: lovenox daily. progressing. home next 1-2 days updated Subjective pt feels "so much better" dizziness improved eating better no nausea/emesis/abd pain tele normal overnight she is starting to feel comfortable w/ insulins, etc at bedside Constitutional: no fever and no chills Respiratory: no dyspnea Cardiovascular: no chest pain Gastrointestinal: no abdominal pain Physical Exam Vital Signs (Past 24 Hours): Last Vital Signs Temp 36.7 C 01/01/19 18:56 Pulse 72 01/01/19 18:56 Resp 18 01/01/19 18:56 BP 137/88 01/01/19 18:56 Pulse Ox 97 01/01/19 18:56 Constitutional: well developed and well nourished; no acute distress looks better today ENMT: external ear and nose normal, oropharynx normal Mouth: no oral mucosal abnormality Respiratory: normal respiratory effort, lungs clear to auscultation Cardiovascular: RRR, no murmur, no edema Heart Sounds: normal S1 and normal S2 Vessels: posterior tibial pulses present and dorsalis pedis pulses present; no JVD Extremities: normal capillary refill Gastrointestinal (Abdomen): normal bowel sounds, soft, nontender, no hepatosplenomegaly Skin: no rashes, warm and dry Psychiatric: A+Ox3, euthymic affect Results & Data Laboratory Results Laboratory Results - last 24 hr 01/01/19 01/01/19 01/01/19 05:31 07:38 11:57 WBC 9.02 RBC 4.06 L Hgb 12.1 D Hct 35.7 L MCV 87.9 MCH 29.8 MCHC 33.9 RDW Std Deviation 44.2 RDW Coeff of Noemi 13.8 Plt Count 91 L MPV 12.2 H Immature Gran % (Auto) 0.6 Neut % (Auto) 72.2 Lymph % (Auto) 19.6 [place] % (Auto) 7.0 Eos % (Auto) 0.3 Baso % (Auto) 0.3 Immature Gran # (Auto) 0.05 H Neut # (Auto) 6.51 H Lymph # (Auto) 1.77 [place] # (Auto) 0.63 H Eos # (Auto) 0.03 Baso # (Auto) 0.03 Platelet Estimate Decreased POC Glucose 204 H 315 H 01/01/19 01/01/19 01/01/19 15:59 19:57 23:24 WBC RBC Hgb Hct MCV MCH MCHC RDW Std Deviation RDW Coeff of Noemi Plt Count MPV Immature Gran % (Auto) Neut % (Auto) Lymph % (Auto) [place] % (Auto) Eos % (Auto) Baso % (Auto) Immature Gran # (Auto) Neut # (Auto) Lymph # (Auto) [place] # (Auto) Eos # (Auto) Baso # (Auto) Platelet Estimate POC Glucose 151 H 97 75 01/02/19 04:13 WBC RBC Hgb Hct MCV MCH MCHC RDW Std Deviation RDW Coeff of Noemi Plt Count MPV Immature Gran % (Auto) Neut % (Auto) Lymph % (Auto) [place] % (Auto) Eos % (Auto) Baso % (Auto) Immature Gran # (Auto) Neut # (Auto) Lymph # (Auto) [place] # (Auto) Eos # (Auto) Baso # (Auto) Platelet Estimate POC Glucose 111 H (1) DKA (diabetic ketoacidoses) Diabetes mellitus complication detail: without coma Diabetes mellitus type: type 1 Qualified Code(s): E10.10 - Type 1 diabetes mellitus with ketoacidosis without coma (2) T1DM (type 1 diabetes mellitus) Diabetes mellitus complication status: with hyperglycemia Qualified Code(s): E10.65 - Type 1 diabetes mellitus with hyperglycemia (3) Hypothyroid Hypothyroidism type: unspecified Qualified Code(s): E03.9 - Hypothyroidism, unspecified (4) Hypertension Hypertension type: essential hypertension Qualified Code(s): I10 - Essential (primary) hypertension
[2019-01-02] MEDS: INSULIN ASPART 100 UNITS/ML 3 ML PEN SC SCH ×3 (04:13→11:46)
[2019-01-02] MEDS: LEVOTHYROXINE SODIUM 50 MCG TABLET PO SCH (05:52)
[2019-01-02 06:37] LABS: BUN Creatinine Ratio 24.4 (10-20); Calcium 7.8 mg/dl (8.5-10.1); Creatinine Clr Calc Pharmacy 110.1 ml/min; Est GFR (Non-African American) 103.5; Magnesium 2.1 mg/dl (1.8-2.4); Phosphorus 2.1 mg/dl (2.5-4.9); Potassium 2.9 mmol/L (3.5-5.1)
[2019-01-02] MEDS ORDERED: POTASSIUM CHLORIDE 10 MEQ TABCR PO STA ×2 (06:59→08:17)
[2019-01-02] MEDS ORDERED: MAGNESIUM SULFATE / D5W 1 GM/100 ML BAG IV ONE (07:15)
[2019-01-02] MEDS: ENOXAPARIN INJ 40 MG/0.4 ML SYR SQ SCH (08:04)
[2019-01-02] MEDS ORDERED: INSULIN GLARGINE SOLOSTAR 100 UNITS/ML 3 ML PEN SC SCH (09:00)
[2019-01-02] MEDS: POT PHOSPHATE MONOBASIC W/ SOD TAB PO SCH ×2 (10:54→13:00)
--- NOTE | 2019-01-02 11:38 | Pharmacy Report ---
Pharmacy Glycemic Short Note 2 - Date of Service January 02, 2019 - Glycemic Short BSG Results (Last 24 hours): 01/01/19 01/01/19 01/01/19 11:57 15:59 19:57 Glucose POC Glucose 315 H 151 H 97 01/01/19 01/02/19 01/02/19 23:24 04:13 05:18 Glucose 111 H POC Glucose 75 111 H 01/02/19 07:46 Glucose POC Glucose 119 H OUTPATIENT ANTIDIABETIC REGIMEN: * None * HbA1c: 14.6% (new diagnosis -- potentially late-onset Type 1 DM?) ASSESSMENT: * Ms Garcia received 62 units of insulin yesterday, with hyperglycemia pre- lunch, but resolution later in the day. * Novolog parameters loosened slightly this morning, as correction appears to have been slightly aggressive yesterday. * AM fasting BSG is trending down, so anticipate that patient's basal insulin needs to be decreased slightly. Will stick with once-daily basal insulin administration, for ease of transition to an outpatient regimen. PLAN FOR INPATIENT GLYCEMIC CONTROL: * Basal insulin * Lantus 40 units SQ once daily * may need to reduce slightly * Bolus insulin: * NovoLog per scale ACHS or Q6hrs while NPO * Goal Range: Low 120 mg/dL - High 160 mg/dL * Correction Factor: 25 mg/dL/unit * Nutritional / Prandial insulin per carb ratio of 1 unit per 8 grams CHO consumed PLAN FOR DISCHARGE: * Patient's A1c (14.6%) indicates that patient will require the addition of insulin at discharge, particularly if she fits a Type 1/1.5 diabetic picture. * Consider also adding Metformin. * Anticipate that Basaglar 30 units SQ qAM is a good starting point for her, with incorporation of meal coverage as patient's comfort level allows. * Expect that Novolog 4 units SQ with each meal for carb coverage is a good starting point. * CDE has also discussed using sliding scale with patient, and she is comfortable with this. In addition to carb coverage, also consider: * BSG less than 150 -- no additional correction * BSG 150 - 175 -- give 1 additional unit * BSG 176 - 200 -- give 2 additional units * BSG 201 - 225 -- give 3 additional units * BSG 226 - 250 -- give 4 additional units * BSG greater than 250 -- give 5 additional units * Patient will require prompt f/u with PCP/parts person after discharge to work toward optimizing glycemic regimen.
[2019-01-02] MEDS ORDERED: POTASSIUM CHLORIDE 10 MEQ TABCR PO SCH (12:00)
[2019-01-02 13:44] LABS: Calcium 8.8 mg/dl (8.5-10.1); Creatinine Clr Calc Pharmacy 64.9 ml/min; Est GFR (African American) 77.1; Est GFR (Non-African American) 66.5; Potassium 3.6 mmol/L (3.5-5.1)
--- NOTE | 2019-01-12 05:52 | Discharge Summary ---
Date of Service date of admission - December 31, 2018 date of discharge - January 02, 2019 Admission HPI Per Admitting Provider Patient is a 58yo female with history of HTN and Hypothyroidism presenting in DKA. She reports diffuse weakness as well as nausea, non-bloody/non-bilious vomiting and PO intolerance over the last 3 days. Also with polydipsia and polyuria along with dry mouth. She denies CP/palpitations/SOB/abdominal pain/diarrhea/dysuria. Patient says she "feels terrible". On arrival to the ER her blood sugar was found to be 880 with an anion gap of 31, pH of 7.26 on VBG. She was administered IVF and started on an insulin drip. The patient retrospectively had lost weight over the last 1-2 months and had severe nocturia with polydipsia. There is a strong family history of autoimmune thyroid disease. Principal Diagnosis diabetic ketoacidosis; new-onset Type 1 DM Discharge Exam Constitutional well developed and well nourished; no acute distress ENMT external ear and nose normal, oropharynx normal Mouth: no oral mucosal abnormality Respiratory normal respiratory effort, lungs clear to auscultation Cardiovascular RRR, no murmur, no edema Heart Sounds: normal S1 and normal S2 Vessels: posterior tibial pulses present and dorsalis pedis pulses present; no JVD Extremities: normal capillary refill Gastrointestinal (Abdomen) normal bowel sounds, soft, nontender, no hepatosplenomegaly Skin no rashes, warm and dry Psychiatric A+Ox3, euthymic affect Discharge Data Allergies Allergy/AdvReac Type Severity Reaction Status Date / Time No Known Allergies Allergy Unverified 12/31/18 00:40 Consultations Diabetic education Battery Tester Field Pharmacy Glycemic Team Hospital Course (1) DKA (diabetic ketoacidoses): The patient's presenting DKA was treated in the customary fashion with IV insulin & copious IV fluids. Electrolytes were replaced as necessary. Her DKA resolved with the above. The pharmacy glycemic team as well as diabetes education team were heavily involved in Mrs. Garcia' care & management. She was ultimately transitioned to a basal-bolus regimen of lantus & novolog, respectively. Doses were adjusted as needed - see below. She did not appear to have any infectious process or other stressor which led to the DKA event. (2) T1DM (type 1 diabetes mellitus): new-onset. Again the pharmacy glycemic team, clinical trial educator, and collections associate were all consulted for assistance in her care. Hemoglobin a1c was 14.6%. Could consider auto-antibodies (VLADIMIR-65, anti-islet cell Ab, etc) as an outpatient. She will need ophthamology follow-up after discharge. At discharge the following regimen was recommended: 1. basaglar 30 units qam 2. novolog 4 units with each meal (fixed dosing) 3. novolog sliding scale She did receive teaching about carbohydrate counting and the goal is ultimate use of a carb ratio along with correction factor when she uses her novolog. She will be set up with the [facility] Endocrinology clinic post-discharge. (3) Acute kidney injury: 2nd to DKA - resolved. Peak creatinine was 1.99, improving to 0.9 at discharge. (4) Hypertension: Her HCTZ and MANUEL were held due to presenting MARIA FERNANDA. BPs were acceptable during the stay. At discharge she was advised to resume her low-dose MANUEL but to continue holding her HCTZ. (5) Hypothyroid: TSH was compensated (0.5). She will continue synthroid at dose of 50mcg daily. (6) Hypokalemia: Replaced and resolved prior to discharge. (7) Hypophosphatemia: Replaced while hospitalized. Total Time Total Time Spent Total Time Spent (In Minutes): 40 Total Time Includes: Examination of the Patient, Discharge Planning, Medication Reconciliation and Communication With Other Providers Discharge Plan Discharge Items Patient Disposition: Home - Self-Care Reason For Visit: DKA Discharge Diagnosis: DKA (diabetic ketoacidosis) - resolved. New-onset type 1 diabetes mellitus. Severe dehydration - resolved. Discharge Goals: Diagnostic testing and Therapeutic intervention Activity: As commented below Activity Comment: for the next 2-3 days take it easy then gradually increase activities Exercise/Sports: Wait until after follow-up appointment Driving/Machine Use: Resume 3 days after discharge Non-emergency contact: Primary Care Provider Call non-emergency contact if: you have any medication questions and your temperature is above 100.5 Follow-up/Referrals: Jason Gracia MD [Physician] - 01/06/19 11:30 am (you are scheduled for an appoitment with a nurse informatics educator at the endocrine office on sunJanuary 06 at 11:30- this appointment will be about 1 hour you are also scheduled for an appointment with the filer and sander Dr. Gracia on January 20 at 1:30PM please bring your glucometer and testing blood sugars to the appointments with you) Funmilayo Willams [Primary Care Provider] - 01/06/19 3:10 pm (Please, follow up at Funmilayo Willams's office with her associate, Juhi INGRAM, on SundayJanuary 06 at 3:10 pm. *If you need to change this appointment, call the office at [phone].) Diet: Carb Count or DM1 Addtl Provider Instructions: From Marco A Boss - Hospitalist - You were admitted for "DKA" (diabetic ketoacidosis). This is often the way a new-onset type 1 (or "type 1.5") diabetic presents to the hospital. The DKA was treated with IV fluids and IV insulin. Your DKA and dehydration resolved with the above. You were seen by the clinical trial educator and collections associate to help you with your insulins, diet, etc. At this time we recommend - 1. basaglar (this is your "basal" or 24-hour insulin) -- 30 units every morning. Start tomorrow morning, 01/03/2019. 2. novolog flexpen (this is your quick-acting and short-acting insulin to cover your food/meals) - take 4 units with each meal. 3. also use the "supplemental scale" as provided by Melissa Orosco to "c orrect" for any high blood sugar at the time of a meal. You will add the "supplemental" amount to the 4 units at the time of the meal. 4. remember that the current insulin pens you are using do not need to be refrigerated. 5. discard a pen needle after 1-2 uses as the tip of the needles get dull. 6. remember to rotate the site at which you are giving your insulin injections (back of the upper arm, abdomen, etc). 7. the glucagon pen is for emergency use only if your blood sugar is low and you cannot take something by mouth to bring the sugar up. 8. if you ever feel "low" or "high" it's always best to check your sugar. 9. follow-up -- see separate section. 10. STOP your hydrochlorothiazide for now. 11. Return to [facility] if or call your family doctor if -- * you have fevers over 100.5 degrees * you have recurrent "lows" or a low that is not responding to eating/drinking * you have persistently high blood sugars (>350-400 persistently) * any other concerns Prescriptions: New Basaglar KwikPen U-100 Insulin 100 unit/mL (3 mL) insulin pen 30 units SQ QAM Qty: 15 RF: 11 Novolog Flexpen U-100 Insulin 100 unit/mL (3 mL) insulin pen 4 units SQ AC Qty: 15 RF: 11 Novolog Flexpen U-100 Insulin 100 unit/mL (3 mL) insulin pen 1 units SQ AC Qty: 15 RF: 0 Continued levothyroxine 50 mcg tablet 50 mcg PO DAILY RF: 0 cyanocobalamin (vitamin B-12) 1,000 mcg/mL Solution 1,000 mcg IM MONTHLY RF: 0 lisinopril 10 mg tablet 10 mg PO DAILY RF: 0 cyanocobalamin (vitamin B-12) 1,000 mcg Capsule 1,000 mcg PO DAILY RF: 0 multivitamin Tablet 1 tab PO DAILY RF: 0 Discontinued hydrochlorothiazide 25 mg tablet 25 mg PO DAILY RF: 0 Stand-Alone Forms: [facility] Discharge Orders: Discharge Order (Routine); Ordered 01/02/19 Ordered By: Marco A Boss Admission Data Admit Date/Time: 12/31/18 01:18 Attending Provider: Marco A Boss Admit Provider: Radha Tucker Primary Care Provider: Funmilayo Willams Service: Telemetry Other Interventions: Discharge Summary Assessment (RN) Last Done: 01/02/19 16:23 Pending Studies at Discharge: No DC Date/Time DO NOT enter until pt leaves facility: 01/02/19 17:48
== END 2019-01-02 17:48 | disposition home or self-care (01) | DRG 638 ==
LOC: ED 22:27 → 2S 12-31 01:18 → SUATTDRO 12-31 01:18 → 2S 12-31 02:00
DX: E83.39 Other disorders of phosphorus metabolism; Z82.49 Family history of ischemic heart disease and other diseases of the circulatory system; N17.9 Acute kidney failure, unspecified; Z83.3 Family history of diabetes mellitus; I10 Essential (primary) hypertension; Z51.81 Encounter for therapeutic drug level monitoring; Z79.899 Other long term (current) drug therapy; E10.10 Type 1 diabetes mellitus with ketoacidosis without coma; E03.9 Hypothyroidism, unspecified; Z83.49 Family history of other endocrine, nutritional and metabolic diseases